=== PATIENT | female | born 1980 | race Caucasian/White ===

== ENCOUNTER → 2020-02-02 | Outpatient (CLI) | payer BC, MEDICAID, SELFPAY | END | disposition home or self-care (01) | LOC: MTDU 10:32 | PROVIDERS: PCP Family Medicine; Referring Provider Nurse Practitioner Family; Visit Provider Nurse Practitioner Family | DX: R11.0 Nausea (principal); R50.9 Fever, unspecified; R19.7 Diarrhea, unspecified; Z20.828 Contact with and (suspected) exposure to other viral communicable diseases | CPT/HCPCS: 87635; G2023; U0003 ==

== ENCOUNTER → 2020-02-10 | Outpatient (CLI) | payer BC, MEDICAID, SELFPAY | END | disposition home or self-care (01) | LOC: MTDU 17:37 | PROVIDERS: PCP Family Medicine; Referring Provider Family Medicine; Visit Provider Family Medicine | DX: R50.9 Fever, unspecified (principal); R11.0 Nausea; R19.7 Diarrhea, unspecified; Z20.828 Contact with and (suspected) exposure to other viral communicable diseases | CPT/HCPCS: 87635; 94799; U0003 ==

== ENCOUNTER 2022-06-17 12:03 | Emergency (ER) | payer BC, MEDICAID, SELFPAY ==
[2022-06-17 12:03] VITALS: BP 122/78; PULSE 77; RESP 15; TEMP 36.2; O2SAT 98; BMI 24.3
[2022-06-17 12:37] LABS: Absolute Neutrophil Count 8.4 X10^3/uL (2.0-7.7); Basophil# 0.05 X10^3/uL; Basophil% 0.4 % (0-1); Eosinophil# 0.14 X10^3/uL; Eosinophils% 1.2 % (0-5); Hemoglobin 13.2 g/dL (12.0-15.0); Lymphocyte % 19.9 % (19-41); Mean Corpuscular Hgb 30.9 pg (27.0-32.0); Mean Corpuscular Volume 93.7 fL (81-99); Mean Platelet Vol. 9.3 fl (6.2-12.0); Monocyte# 1.05 X10^3/uL; Monocyte% 8.7 % (0-10); NRBC Flagged by Analyzer 0 % (0-5); Neutrophil # 8.36 X10^3/uL (2.7-7.7); Neutrophil % 69.4 % (47-70); Platelet Count 243 K/mm3 (150-450); RBC Distribution Width SD 44.4 fl (35.1-43.9); Red Blood Count 4.27 M/mm3 (4.2-5.4); White Blood Count 12.1 K/mm3 (4.4-11.0)
--- NOTE | 2022-06-17 12:46 | CT_ITS ---
STUDY: CT ABDOMEN AND PELVIS WITH CONTRAST REASON FOR EXAM: Female, 42 years old. Two-week history of right lower quadrant pain. RADIATION DOSAGE (If Supplied By Facility): CTDIvol = ( 10.44 ) mGy, DLP = ( 352.04 ) mGycm TECHNIQUE: Transaxial images were obtained from the dome of the diaphragm to the symphysis pubis with oral contrast. Oral and amp;amp; IV Gastrografin and amp;amp; 100mL Isovue-300 was administered. Sagittal and coronal images were reconstructed. Individualized dose optimization techniques were used for this CT. COMPARISON: None. FINDINGS: Minimal linear scarring in the lingular segment of the left upper lobe. The visualized portions of the heart are within normal limits. Mild hepatomegaly. This evidence of a mild degree of the edematous changes of the vascular biliary triads suggests a possible hepatitis. The gallbladder is contracted. Normal spleen. Normal pancreas. Normal bilateral adrenal glands. Normal right kidney. Normal left kidney. Normal visualized stomach. Normal small intestine. Large amount of fecal material is seen in the colon. The appendix is visualized and appears normal. Normal abdominal aorta. Normal inferior vena cava. Normal retroperitoneum. Normal urinary bladder. The patient is status post bilateral tubal ligation. Dominant follicles are seen in both ovaries. The largest follicle in the left ovary measures 1.4 cm. Normal abdominal wall. Loss of the normal lumbar lordosis. CT/Abdomen/Pelvis WITH Contrast IMPRESSION: Large amount of fecal material is seen in the colon. Dominant follicles are seen in both ovaries. Hepatomegaly with edema of the portal triads. Contracted gallbladder. Electronically Signed: Abram Bonilla MD at 14:44 EST ,
[2022-06-17 12:53] LABS: Anion Gap 6 (5-15); BUN 14 mg/dL (7-18); Calcium,Total 8.4 mg/dL (8.5-10.1); Chloride 106 mmol/L (98-107); Creatinine, Serum 0.64 mg/dL (0.55-1.02); EST Glomerular Filtration Rate 110 mL/min (>60); Est Glom Filt Rate - Afr Amer 133 mL/min (>60); Estimated Creatinine Clearance 96.66 ml/min; Glucose 98 mg/dL (74-106); Potassium 3.4 mmol/L (3.5-5.1); Sodium Level 139 mmol/L (136-145)
[2022-06-17 12:55] LABS: Internal QC Validated? YES +Cl - CLEAR BKGD; Pregnancy, Serum, hCG Quali. NEGATIVE Negative
--- NOTE | 2022-06-17 13:09 | EDS_ITS ---
HPI HPI - GI History of Present Illness Chief Complaint: Abd Pain Informant: patient Abdominal Pain/Flank Pain Onset: Yesterday Context: Gradual Onset Timing: Continuous Quality: Sharp and Stabbing Location: RLQ Worsened by: Movement (Bending forward, coughing, and lifting her right leg) Relieved by: Nothing Nausea/Vomiting/Emesis GI Symptom: Positive for Nausea; Negative for Vomiting Diarrhea/Melena/Hematochezia GI Symptom: Negative for Diarrhea, Melena or Hematochezia Associated Symptoms Associated Symptoms: Negative for Dysuria, Frequency or Hematuria Narrative Narrative: Patient presents with right lower quadrant abdominal pain that became worse yesterday. Patient states it has been constant since yesterday. Patient states she has had intermittent pain for the last couple weeks. Patient states her pain started in her right lower quadrant and has stayed in the right lower quadrant. Patient describes it as sharp and stabbing. Patient states it is worse with coughing, bending forward, and lifting her right leg. Patient admits to nausea and decreased appetite. Patient denies any vomiting. Patient denies any diarrhea, melena, or hematochezia. Patient denies any urinary complaints. PFSH PFSH Medical History (Updated 06/17/22 @ 15:[address] Titi Gastelum DO) Chiari malformation Fibromyalgia Rheumatoid arthritis Medical History no medical history Home Medications leflunomide 20 mg tablet (Arava) 20 mg PO DAILY 12/11/15 [History Last Taken Unknown] lorazepam 0.5 mg tablet 0.5 mg PO DAILY PRN PRN Anxiety 12/11/15 [History Last Taken Unknown] naproxen sodium 220 mg tablet (Aleve) 220 mg PO Q12H 12/11/15 [History Last Taken Unknown] oxycodone-acetaminophen 5 mg-325 mg tablet 1 - 2 tab PO Q4H PRN PRN Pain ##20 12/11/15 [Rx Last Taken Unknown] Allergy/AdvReac Type Severity Reaction Status Date / Time Penicillins Allergy Rash Verified 06/17/22 12:03 morphine AdvReac Other Verified 06/17/22 12:03 Surgical History (Updated 06/17/22 @ 13:[address] Titi Gastelum DO) History of endometrial ablation Hx of tubal ligation Social History Smoking Status: Former smoker ROS ROS ED Constitutional Constitutional ED: Denies chills or fever(s) Eyes Eyes: Denies blurry vision or change in vision ENT ENT ED: Denies rhinorrhea or sore throat Cardiovascular Cardiovascular: Denies chest pain or palpitations Respiratory/Chest Respiratory/Chest: Denies cough or dyspnea Gastrointestinal Gastrointestinal: Reports abdominal pain and nausea; Denies vomiting Genitourinary Genitourinary ED: Denies dysuria or hematuria Musculoskeletal Musculoskeletal: Denies back pain or neck pain Integumentary Denies abscess or rash Neurologic Neurologic: Denies headache(s) or weakness Allergic/Immunologic Allergic/Immunologic ED: Denies mouth swelling or urticaria EXAM Physical Exam Const Vital Signs: 06/17/22 12:03 06/17/22 14:08 Temperature 97.2 F L Temperature Source Temporal Pulse Rate 77 Respiratory Rate 15 14 Blood Pressure 122/78 H Blood Pressure Mean 92 Pulse Ox 98 Oxygen Delivery Method Room Air Positive well nourished and well developed General Appearance ED: well developed HEENT Reports moist mucous membranes Neck supple and no JVD Resp normal respiratory effort and clear to auscultation bilaterally Cardio regular rate, regular rhythm and no murmurs GI normal to inspection, nondistended, normoactive bowel sounds Palpation: soft and tender RLQ and Rovsing's sign; Negative for guarding or rebound tenderness present Extremity normal to inspection General Extremety ED: Negative for edema or tenderness General Extremity: Negative for edema Neuro oriented x3, CN's II-XII intact bilaterally and no sensory deficits noted Sensorium / Orientation: alert Motor Exam: strength 5/5 throughout Psych mental status grossly normal Skin no rashes or lesions noted MDM MDM MDM Narrative Medical decision making narrative: Patient was given IV fluids and Zofran. CBC shows a mild leukocytosis of 12.1. Basic metabolic profile was within normal limits. Serum hCG was negative. Urinalysis does not show any evidence of urinary tract infection or hematuria. CT scan of the abdomen pelvis was obtained. There is stool throughout the colon. There is no evidence of appendicitis. There are dominant follicles of both ovaries. There is no acute abnormality. This was interpreted by the radiologist and reviewed by myself. Patient was advised of her findings. Patient was instructed to use [id number] laxatives as needed for constipation. Patient was instructed to follow-up with her primary care physician in 5 to 7 days. Patient understood and was agreeable with the plan. All questions were answered. Lab Data Attestation: I reviewed the patient's lab results. Labs: Laboratory Results - last 24 hr 06/17/22 06/17/22 06/17/22 12:30 12:30 12:30 WBC 12.1 H RBC 4.27 Hgb 13.2 Hct 40.0 MCV 93.7 MCH 30.9 MCHC 33.0 RDW Std Deviation 44.4 H RDW Coeff of Luke 13.0 Plt Count 243 MPV 9.3 Immature Gran % (Auto) 0.400 Neut % (Auto) 69.4 Lymph % (Auto) 19.9 [place] % (Auto) 8.7 Eos % (Auto) 1.2 Baso % (Auto) 0.4 Absolute Neuts (auto) 8.4 H Absolute Lymphs (auto) 2.40 Nucleated RBC % 0 Sodium 139 Potassium 3.4 L Chloride 106 Carbon Dioxide 27.0 Anion Gap 6 BUN 14 Creatinine 0.64 Estim Creat Clear Calc 96.66 Est GFR (MDRD) Af Amer 133 Est GFR (MDRD) Non-Af 110 BUN/Creatinine Ratio 22.0 H Glucose 98 Calcium 8.4 L Serum , Qual NEGATIVE Urine Color Urine Clarity Urine pH Ur Specific [place] Urine Protein Urine Glucose (UA) Urine Ketones Urine Occult Blood Urine Nitrite Urine Bilirubin Urine Urobilinogen Ur Leukocyte Esterase Urine RBC Urine WBC Ur Squamous Epith Cells Urine Bacteria Urine Mucus 06/17/22 13:48 WBC RBC Hgb Hct MCV MCH MCHC RDW Std Deviation RDW Coeff of Luke Plt Count MPV Immature Gran % (Auto) Neut % (Auto) Lymph % (Auto) [place] % (Auto) Eos % (Auto) Baso % (Auto) Absolute Neuts (auto) Absolute Lymphs (auto) Nucleated RBC % Sodium Potassium Chloride Carbon Dioxide Anion Gap BUN Creatinine Estim Creat Clear Calc Est GFR (MDRD) Af Amer Est GFR (MDRD) Non-Af BUN/Creatinine Ratio Glucose Calcium Serum , Qual Urine Color Yellow Urine Clarity Clear Urine pH 6.5 Ur Specific [place] 1.015 Urine Protein 15 H Urine Glucose (UA) Normal Urine Ketones Negative Urine Occult Blood 25 H Urine Nitrite Negative Urine Bilirubin Negative Urine Urobilinogen Normal Ur Leukocyte Esterase 25 H Urine RBC 0-5 SEEN Urine WBC 0-5 SEEN Ur Squamous Epith Cells 0-5 SEEN Urine Bacteria 2+ Urine Mucus 0 SEEN Radiography Diagnostic Testing: Clinical Impression(s) from Imaging Studies Abdomen/Pelvis CT 06/17/22 12:46 IMPRESSION: Large amount of fecal material is seen in the colon. Dominant follicles are seen in both ovaries. Hepatomegaly with edema of the portal triads. Contracted gallbladder. Electronically Signed: Abram Bonilla MD at 14:44 EST , Discharge Plan Triage Chief Complaint: Abd Pain ED Provider: Titi Gastelum Dx/Rx/DC Orders Clinical Impression: Abdominal pain, Constipation Instructions: ED Abdominal Pain Unkn Cause Fem, ED Constipation (Adult) Prescriptions: No Action leflunomide [Arava] 20 MG tablet 20 mg PO DAILY lorazepam 0.5 MG tablet 0.5 mg PO DAILY PRN PRN (Reason: Anxiety) naproxen sodium [Aleve] 220 MG tablet 220 mg PO Q12H oxycodone-acetaminophen 1 TABLET tablet 1 - 2 tab PO Q4H PRN PRN (Reason: Pain) Qty: 20 0RF Primary Care Provider: Sebastian Rivera Referrals: Sebastian Rivera MD [Primary Care Provider] - 5-7 Days Disposition Disposition: Home, Self Care
[2022-06-17] MEDS: 0.9% Normal Saline 1,000 ML 1000 ML IV (13:41)
[2022-06-17] MEDS: Ondansetron 4 MG/2 ML Vial IV (13:41)
[2022-06-17 13:51] LABS: Mucous, Urine 0 SEEN /hpf (<or=2+)
[2022-06-17 13:52] LABS: Color, Urine Yellow (Yellow); Glucose, Dipstick Normal (Normal); Ketone-Dipstick Negative (Negative); Leukocyte Esterase-Dipstick 25 /ul (Negative); Nitrite-Dipstick Negative (Negative); Occult Blood-Urine 25 /ul (Negative); Protein-Dipstick 15 mg/dl (Negative); Specific Gravity, Urine 1.015 (1.002-1.030); Urine Bilirubin Dipstick Negative (Negative); Urine Clarity Clear (Clear); Urine Urobilinogen Normal (Normal); Urine pH 6.5 (5.0 - 8.0)
[2022-06-17 13:58] LABS: Squamous Epithelial Cells - UA 0-5 SEEN /hpf (5-10); White Blood Cells 0-5 SEEN /hpf (0-5)
[2022-06-17 13:59] LABS: Bacteria 2+ /hpf (None Seen); Red Blood Cells-Urine 0-5 SEEN /hpf (0-5)
[2022-06-17 14:08] VITALS: RESP 14
== END 2022-06-17 15:56 | disposition home or self-care (01) ==
PROVIDERS: Emergency Provider Emergency Medicine; PCP Family Medicine; Visit Provider Emergency Medicine
DX: R10.9 Unspecified abdominal pain (principal); K59.00 Constipation, unspecified; R11.0 Nausea; Z87.891 Personal history of nicotine dependence
CPT/HCPCS: 74177; 80048; 81001; 84703; 85025; 96361; 96374; 99283; J7030; Q9967; A4216; J2405